=== PATIENT | female | born 1980 | race Hispanic/Latino ===

== ENCOUNTER 2021-07-20 14:52 | Emergency (ER) | payer OTHER ==
[~2021-07-20] VITALS: Ht 157.5 cm; Wt 106.1 kg
[2021-07-20 16:26] LABS: INR 0.92; PARTIAL THROMBOPLASTIN TIME 18.5 seconds (23.8-35.5); PROTHROMBIN TIME 13.1 seconds (11.9-14.5)
[2021-07-20 16:35] LABS: ALBUMIN 3.8 g/dL (3.5-5.0); ANION GAP 17.5 mmol/L (8-16); CALCIUM 8.5 mg/dL (8.4-10.2); CREATININE, SERUM 0.68 mg/dL (0.57-1.11); POTASSIUM 4.5 mmol/L (3.5-5.1)
[2021-07-20 16:42] LABS: CREATINE KINASE MB 1.4 ng/mL (0-5.0)
[2021-07-20] MEDS ORDERED: HALOPERIDOL LACTATE 5 MG/ML VIAL IM ONE (17:45)
== END 2021-07-20 18:11 | disposition left against medical advice (07) ==
LOC: ER 15:39
DX: R06.02 Shortness of breath (principal); R07.89 Other chest pain; R05.9 Cough, unspecified; F43.10 Post-traumatic stress disorder, unspecified; Z20.822 Contact with and (suspected) exposure to COVID-19; Z86.711 Personal history of pulmonary embolism
CPT/HCPCS: 36415; 71045; 80053; 82550; 82553; 84484; 84702; 85379; 85610; 85730; 93005; 99285; U0002